=== PATIENT | male | born 1985 | race Caucasian/White ===

== ENCOUNTER 2019-12-28 23:32 | Emergency (ER) | payer OTHER, MEDICAID, SELFPAY ==
[2019-12-28 23:38] VITALS: BP 170/80; PULSE 80; RESP 20; TEMP 37.2; O2SAT 98
--- NOTE | 2019-12-28 23:51 | ED.EXTPRO ---
HPI - Extremity Problem General Chief complaint: Extremity Problem,Nontraumatic Stated complaint: spasms in legs/swelling Time Seen by Provider: 12/28/19 23:42 Source: patient Mode of arrival: Ambulatory Limitations: no limitations History of Present Illness HPI Narrative: 34-year-old male here for evaluation of swelling to his left lower extremity. Patient states that last evening he had a cramp in his left calf. He also states that he potentially had 1 in his right calf but was much worse in his left. No fevers. He states that today he has not had any of those symptoms but has noticed that his left lower extremities swelling. No pain today. Came into the emergency department for evaluation Related Data Previous Rx's Medication Instructions Recorded epinephrine [EpiPen 2-Yahir] 0.3 mg IM PRN PRN #1 pkg 01/30/16 baclofen 10 mg PO TID PRN #60 tab 10/20/17 nabumetone 750 mg PO QDAY #30 tab 10/20/17 Allergies Allergy/AdvReac Type Severity Reaction Status Date / Time Bee Venom Allergy Unknown UNKNOWN Uncoded 10/14/17 12:53 Sulfamethoxazole Allergy Unknown UNKNOWN Uncoded 10/14/17 12:53 Trimethoprim Allergy Unknown UNKNOWN Uncoded 10/14/17 12:53 Review of Systems Constitutional Constitutional: Denies fever(s) Musculoskeletal Comments: Swelling left lower extremity Integumentary/Breasts Skin/Breast: Denies lesions and Denies rash Neurologic Neurologic: Denies behavioral changes Psychiatric Psychiatric: Denies behavioral changes Hematologic/Lymphatic Hematologic/Lymphatic: Denies easy bleeding and Denies easy bruising Patient History Medical History Obesity Right hip pain (Inactive) Family History (Updated 01/30/16 @ 00:00 by Conversion Provider) Grandfather Age: 90 Cancer Heart disease High cholesterol Mother Age: 56 High cholesterol Mental health disorder Social History details: never household members: family pets and animals: No education level: college travel history: other leisure activities: sports, exercise, games and other other: midevil fisting seatbelt use: always helmet use: Yes water heater temp set < 120 deg: Yes working smoke detector in home: Yes fire extinguisher in home: Yes carbon monox detector in home: Yes firearms in home: No do you feel safe at home: Yes Smoking Status: Never smoker substance use type: marijuana during the past year weight has: decreased > 10 lbs well-balanced diet: daily or most days daily servings fruits/veg: other caffeine: No eating out: 1-3 times/week Type(s) of exercise: walking frequency: 1-2 times per week duration: 45-60 minutes/day Smoking Status: Never smoker alcohol intake frequency: a few times a month Substance Use Type: does not use Exam Initial Vital Signs Initial Vital Signs: Vital Signs Temperature 99 F 12/28/19 23:38 Pulse Rate 80 12/28/19 23:38 Respiratory Rate 20 12/28/19 23:38 Blood Pressure 170/80 H 12/28/19 23:38 Pulse Oximetry 98 12/28/19 23:38 Const General: cooperative, comfortable and well developed Resp Effort & Inspection: normal respiratory effort Skin Lesions: no lesions Rashes: no rashes Neuro Cognition: normal cognition Gait: normal gait Sensory Exam: no sensory deficits noted Extrem General: capillary refill normal Other: The left lower extremity does appear slightly more swollen than the right from his ankles to his knees. This is nonpitting edema. Otherwise lower extremity exam is unremarkable Psych Appearance: grossly normal and well kempt Scores Wells' Criteria for DVT Active Cancer (Treatment within 6 months): No Bedridden recently >3 days or major surgery within 4 weeks: No Calf Swelling >3cm compared to other leg: No Collateral (nonvericose) superficial veins present: No Entire leg swollen: No Localized tenderness along the deep vein system: No Pitting edema, confined to symtomatic leg: No Paralysis, paresis, or recent plaster immobilization of ext: No Previously documented DVT: No Alternative dx to DVT as likely or more likely: Yes Wells' criteria for DVT: -2 Course Orders Ordered: ED Orders 12/28/19 23:51 Basic Metabolic Panel Stat Complete Blood Count AUTO DIFF Stat D Dimer Stat Partial Thromboplastin Time Stat Prothrombin Time INR Stat Vital Signs Vital signs: Vital Signs - 8 hr 12/28/19 23:38 Temperature 99 F Pulse Rate 80 Respiratory Rate 20 Blood Pressure 170/80 H Pulse Oximetry 98 MDM - Extremity (Nontraumatic) Lab Data Attestation: I reviewed the patient's lab results. Result diagrams: 12/29/19 00:05 12/29/19 00:05 Labs: Lab Results 12/29/19 12/29/19 12/29/19 Range/Units 00:05 00:05 00:05 WBC 6.4 (4.5-11.0) X10^3/uL RBC 5.18 (4.5-5.9) X10^6/uL Hgb 15.0 (13.5-17.5) g/dL Hct 44.9 (41-53) % MCV 86.6 (80-100) fL MCH 28.9 (26-34) PG MCHC 33.4 (30-36) % RDW 14.5 (11.6-14.8) % Plt Count 243 (150-400) X10^3/uL Neut % (Auto) 59.7 (50-75) % Lymph % (Auto) 30.5 (25-40) % [place] % (Auto) 7.2 (3-14) % Eos % (Auto) 1.8 L (2-4) % Baso % (Auto) 0.8 (0-2) % Neut # (Auto) 3800 (5094-6521) /uL Lymph # (Auto) 1900 (5649-3440) /uL [place] # (Auto) 500 (0-900) /uL Eos # (Auto) 100 (0-450) /uL Baso # (Auto) 100 (0-100) /uL PT 11.6 (10.1-12.7) SECONDS INR 1.0 (0.9-1.3) APTT 36 (26.4-36.2) SECONDS D-Dimer < 200 (<230) ng/mL Sodium 141 (137-145) mmol/L Potassium 3.9 (3.4-5.1) mmol/L Chloride 107 (98-107) mmol/L Carbon Dioxide 26 (22-32) mmol/L BUN 18 (9-20) mg/dL Creatinine 0.76 (0.66-1.25) mg/dL Estimated GFR > 60.0 (>60) mL/min BUN/Creatinine Ratio 23.7 H (6-22) Glucose 101 H (70-100) mg/dL Calcium 9.6 (8.4-10.2) mg/dL MDM Narrative Medical decision making narrative: Patient is low risk per the will score. His D-dimer is negative. I feel we can hold on ultrasound. He does have a relatively unremarkable exam. I have low suspicion for DVT. Low suspicion for cellulitis. Low suspicion for compartment syndrome. Low suspicion for other orthopedic injury. Feel we can hold on any radiologic studies. Provided reassurance to the patient. He was given return precautions and follow-up instructions. He expressed understanding and agreement. Discharge Plan Departure Patient Disposition: Home Clinical Impression: Localized swelling of left lower leg Discharge Date/Time: 12/29/19 00:32 Instructions: DI for Peripheral Edema, Unilateral Activity Restrictions/Additional Instructions: Continue all of your medications as directed. I do recommend that you keep her left leg elevated for the next several days. Recommend that you do make contact with a primary provider. You can contact the health resource is coordinator here at the [facility] at [phone]. Return to the emergency department for any new or worsening symptoms Prescriptions: No Action epinephrine [EpiPen 2-Yahir] 0.3 MG/0.3 ML auto-injector 0.3 mg IM PRN PRNQty: 1 RF: 1 nabumetone 750 MG tablet 750 mg PO QDAY Qty: 30 RF: 2 baclofen 10 MG tablet 10 mg PO TID PRNQty: 60 RF: 1
--- NOTE | 2019-12-28 23:52 | PC.NURSE ---
PT states intermittent calf spasms and bi-lateral lower leg swelling for 2 days. Pt ambulated to room with steady gait, no pitting edema noted, +bi lateral pedal pulses.
[2019-12-29 00:18] LABS: Add Manual Diff / Slide Review NO; Basophils Absolute Auto 100 /uL (0-100); Basophils Percent Auto 0.8 % (0-2); Eosinophils Absolute Auto 100 /uL (0-450); Eosinophils Percent Auto 1.8 % (2-4); Hematocrit 44.9 % (41-53); Lymphocytes Absolute Auto 1900 /uL (1100-4500); Lymphocytes Percent Auto 30.5 % (25-40); Mean Corpuscular HGB Conc 33.4 % (30-36); Mean Corpuscular Hemoglobin 28.9 PG (26-34); Mean Corpuscular Volume 86.6 fL (80-100); Monocytes Absolute Auto 500 /uL (0-900); Monocytes Percent Auto 7.2 % (3-14); Neutrophils Absolute Auto 3800 /uL (1500-7000); Neutrophils Percent Auto 59.7 % (50-75); Platelet Count 243 X10^3/uL (150-400); Red Blood Cell Count 5.18 X10^6/uL (4.5-5.9); Red Cell Distribution Width 14.5 % (11.6-14.8); White Blood Cell Count 6.4 X10^3/uL (4.5-11.0)
[2019-12-29 00:20] LABS: Prothrombin Time 11.6 SECONDS (10.1-12.7)
[2019-12-29 00:23] LABS: PTT Partial Thromboplastin Tim 36 SECONDS (26.4-36.2)
[2019-12-29 00:24] LABS: BUN Creatinine Ratio 23.7 (6-22); Blood Urea Nitrogen 18 mg/dL (9-20); Calcium 9.6 mg/dL (8.4-10.2); Carbon Dioxide 26 mmol/L (22-32); Chloride 107 mmol/L (98-107); D Dimer < 200 ng/mL (<230); Estimated Glomerular Filt Rate > 60.0 mL/min (>60); Glucose 101 mg/dL (70-100); HEMOLYSIS < 15 (0-50); Potassium 3.9 mmol/L (3.4-5.1); Sodium 141 mmol/L (137-145)
== END 2019-12-29 00:32 | disposition home or self-care (01) ==
PROVIDERS: Emergency Provider Emergency Medicine
DX: R60.0 Localized edema (principal)
CPT/HCPCS: 36415; 80048; 85025; 85379; 85610; 85730; 99283

== ENCOUNTER 2021-02-28 13:51 | Emergency (ER) | payer OTHER, MEDICAID, SELFPAY ==
[2021-02-28] VITALS (7 sets, daily range): BP systolic 163–187; BP diastolic 89–105; PULSE 83–110; RESP 20–21; TEMP 36.9; O2SAT 93–97; BMI 58.4
--- NOTE | 2021-02-28 14:06 | ED_ITS ---
HPI - SOB/Dyspnea General Chief Complaint: Shortness of Breath/Dyspnea Stated Complaint: cpap machine recalled, SOB may be related Time Seen by Provider: 02/28/21 13:53 History of Present Illness HPI Narrative: Patient here for dyspnea for the past 8 months. Not every day has dyspnea. On average 3 times a week. He does walk daily. Denies any exertional chest pain or chest pain at rest. No changes in walking effort. Patient states his CPAP machine was recalled. Last use was yesterday. He is in works with [employer] and insurance to replace it. They are working with patient today. Denies denies any chest pain. Patient in no distress. Walked from waiting room to room 2. Resting comfortably in bed. Speaking full sentences. No distress. Patient states he has been dieting and exercising for weight loss without any exertional chest pain or dyspnea. Related Data Previous Rx's Medication Instructions Recorded epinephrine 0.3 mg/0.3 mL 0.3 mg IM PRN PRN #1 pkg 01/30/16 injection, auto-injector (EpiPen 2-Yahir) baclofen 10 mg tablet 10 mg PO TID PRN #60 tab 10/20/17 nabumetone 750 mg tablet 750 mg PO QDAY #30 tab 10/20/17 Allergies Allergy/AdvReac Type Severity Reaction Status Date / Time Bee Venom Allergy Unknown UNKNOWN Uncoded 10/14/17 12:53 Sulfamethoxazole Allergy Unknown UNKNOWN Uncoded 10/14/17 12:53 Trimethoprim Allergy Unknown UNKNOWN Uncoded 10/14/17 12:53 Review of Systems Review of Systems Narrative: GENERAL: Denies chills, fatigue, malaise, fever, sweats. HEENT: Denies sinus pain, ear pain, sore throat RESPIRATORY: Complain dyspnea, denies cough CARDIOVASCULAR: Denies chest pain, palpitations GASTROINTESTINAL: Denies nausea, vomiting, abdominal pain : Denies dysuria, frequency, hematuria MUSCULOSKELETAL: denies muscle or bony pain SKIN: Denies rash, skin lesions NEUROLOGIC: Denies weakness, numbness ROS Unobtainable: All systems reviewed & are unremarkable except as noted in HPI and below Patient History Medical History (Updated 02/28/21 @ 16:34 by Adair Welch MD) Obesity Right hip pain Family History Grandfather Age: 92 Cancer Heart disease High cholesterol Mother Age: 58 High cholesterol Mental health disorder Social History details: never household members: family pets and animals: No education level: college travel history: other leisure activities: sports, exercise, games and other other: midevil fisting seatbelt use: always helmet use: Yes water heater temp set < 120 deg: Yes working smoke detector in home: Yes fire extinguisher in home: Yes carbon monox detector in home: Yes firearms in home: No do you feel safe at home: Yes Smoking Status: Never smoker substance use type: marijuana during the past year weight has: decreased > 10 lbs well-balanced diet: daily or most days daily servings fruits/veg: other caffeine: No eating out: 1-3 times/week Type(s) of exercise: walking frequency: 1-2 times per week duration: 45-60 minutes/day Smoking Status: Never smoker alcohol intake frequency: a few times a month Substance Use Type: does not use Exam Narrative Exam Narrative: GENERAL: in no distress, not toxic not dyspneic HEAD: Normocephalic. EYES: Pupils equal round No scleral icterus. No injection no discharge ENT: Mucous membranes moist. NECK: Trachea midline. CARDIOVASCULAR: Regular rate and rhythm without murmurs RESPIRATORY: Clear to auscultation. Breath sounds equal bilaterally. No wheezes, rales, or rhonchi. Speaking full sentences. Walking in hallway from waiting room to room to without any distress. No labored breathing. GASTROINTESTINAL: Abdomen soft, non-tender EXTREMITIES: No gross deformities. Chronic bilateral ankle edema BACK: No flank tenderness. NEURO: AOx4. SKIN: Warm and dry PSYCH: Not anxious, is cooperative Initial Vital Signs Initial Vital Signs: Vital Signs Temperature 98.4 F 02/28/21 13:55 Pulse Rate 105 H 02/28/21 13:55 Respiratory Rate 20 02/28/21 13:55 Blood Pressure 187/105 H 02/28/21 13:55 Pulse Oximetry 97 02/28/21 13:55 Course Course Course Narrative: No new issues during course of stay no chest pain or dyspnea. Orders Ordered: ED Orders 02/28/21 14:06 XR chest 1V Stat 02/28/21 14:38 Complete Blood Count AUTO DIFF Stat Comprehensive Metabolic Panel Stat NT-proBNP (BNP-Adult 18+) Stat Troponin & CK Cardiac Panel Stat 02/28/21 14:41 EKG-12 Lead Stat Reevaluation(s) Reevaluation #1: Reviewed results with patient. Agrees with treatment plan and follow-up with primary care. He does have a family doctor he states. He states they are going to work on getting a new CPAP machine. There is a national back log on CPAP machines as there was a recall on so many brands and types of CPAP machines. Time: 16:32 Vital Signs Vital signs: Vital Signs - 8 hr 02/28/21 13:55 02/28/21 14:00 02/28/21 14:01 Temperature 98.4 F Pulse Rate 105 H 110 H 106 H Respiratory Rate 20 Blood Pressure 187/105 H 169/99 H Pulse Oximetry 97 96 96 MDM - SOB/Dyspnea Differential Diagnosis Differential diagnosis: Likely acute exacerbation of chronic obstructive airways disease, congestive heart failure, community acquired pneumonia, asthma with exa cerbation and other (Chronic dyspnea/chronic sleep apnea) Lab Data Result diagrams: 02/28/21 14:38 02/28/21 14:38 Labs: Lab Results 02/28/21 02/28/21 Range/Units 14:38 14:38 WBC 4.8 (4.5-11.0) X10^3/uL RBC 5.30 (4.5-5.9) X10^6/uL Hgb 14.8 (13.5-17.5) g/dL Hct 44.5 (41-53) % MCV 84.0 (80-100) fL MCH 28.0 (26-34) PG MCHC 33.3 (30-36) % RDW 14.8 (11.6-14.8) % Plt Count 229 (150-400) X10^3/uL Neut % (Auto) 63.7 (50-75) % Lymph % (Auto) 27.3 (25-40) % [place] % (Auto) 5.9 (3-14) % Eos % (Auto) 2.2 (2-4) % Baso % (Auto) 0.9 (0-2) % Neut # (Auto) 3000 (1009-8662) /uL Lymph # (Auto) 1300 (8437-7932) /uL [place] # (Auto) 300 (0-900) /uL Eos # (Auto) 100 (0-450) /uL Baso # (Auto) 0 (0-100) /uL Sodium 141 (137-145) mmol/L Potassium 3.0 L (3.4-5.1) mmol/L Chloride 102 (98-107) mmol/L Carbon Dioxide 31 (22-32) mmol/L BUN 16 (9-20) mg/dL Creatinine 0.77 (0.66-1.25) mg/dL Estimated GFR > 60.0 (>60) mL/min BUN/Creatinine Ratio 20.8 (6-22) Glucose 174 H (70-100) mg/dL Calcium 9.0 (8.4-10.2) mg/dL Total Bilirubin 0.8 (0.2-1.3) mg/dL AST 63 H (17-59) IU/L ALT 85 H (<50) IU/L Alkaline Phosphatase 79 (38-126) U/L Total Creatine Kinase 93 (55-170) U/L CK-MB (CK-2) TNP CK-MB (CK-2) Rel Index TNP Troponin I < 0.012 (0.01-0.034) ng/mL NT-Pro-B Natriuret Pep 20 (<125) pg/mL Total Protein 7.0 (6.3-8.2) g/dL Albumin 4.1 (3.5-5.0) g/dL Globulin 2.9 (1.7-4.1) g/dL Albumin/Globulin Ratio 1.4 (1.0-2.8) Imaging Data Chest x-ray: Radiologist's Impression: [address] [id number] ReportSigned Patient: Dc Cruz RMR#: [id number]: 1985Acct:[id number]/Sex: 35 / MDate of Service: 02/28/21Loc: EDAccession Number: [id number] Procedure: XR chest 1V Ordering Provider: Adair Welch MD PROCEDURE: XR CHEST 1V INDICATIONS: dyspnea TECHNIQUE: One view of the chest was acquired. COMPARISON: None. FINDINGS: Surgical changes and devices: None. Lungs and pleura: Lungs are clear. No pleural effusions or pneumothorax. Mediastinum: Mediastinal contours appear normal. Heart size is normal. Bones and chest wall: No suspicious bony lesions. Overlying soft tissues appear unremarkable. IMPRESSION: No acute cardiopulmonary disease process. Dictated by: Shalini Carey MD, PhD on 02/28/2021 at 14:32 Approved by: Shalini Carey MD, PhD on 02/28/2021 at 14:33 ECG Data Interpretation: Normal sinus rhythm rate [address] elevation/depression MDM Narrative Medical decision making narrative: Appropriate discharge home. Patient in no distress here. No ever had chest pain., heart rate and blood pressure noted on arrival. However on EKG heart rate did improve to 87. No repeat laboratory studies at this time. Ongoing for 8 months. No new changes. Patient was instructed to come here because his CPAP machine is in recall. We do not have any CPAP machines here as we are on back order. At discharge blood pressure 163/89 with pulse of 83. Low suspicion for pulmonary embolism at this time. Ongoing for 8 months. Dyspnea is intermittent only a few times a week. Discharge Plan Departure Patient Disposition: Home Clinical Impression: Chronic dyspnea Apnea, sleep Qualifiers: Sleep apnea type: unspecified type Qualified Code(s): G47.30 - Sleep apnea, unspecified Instructions: Sleep Apnea, DI for Shortness of Breath Activity Restrictions/Additional Instructions: Return immediately or if any questions or concerns or worsening symptoms or any chest pain. See family doctor to continue efforts to get a new CPAP machine. Prescriptions: No Action epinephrine [EpiPen 2-Yahir] 0.3 MG/0.3 ML auto-injector 0.3 mg IM PRN PRNQty: 1 RF: 1 nabumetone 750 MG tablet 750 mg PO QDAY Qty: 30 RF: 2 baclofen 10 MG tablet 10 mg PO TID PRNQty: 60 RF: 1 Referrals: Miscellaneous,DoctorMD [Primary Care Provider] -
--- NOTE | 2021-02-28 14:11 | PC.NURSE ---
pt having 8 months of SOB,pt here today because he is concerned that his cpap was recalled and it said there could be complications related to that which include SOB. Pt denies pain and has an occasional cough.
[2021-02-28 14:47] LABS: Add Manual Diff / Slide Review NO; Basophils Absolute Auto 0 /uL (0-100); Basophils Percent Auto 0.9 % (0-2); Eosinophils Absolute Auto 100 /uL (0-450); Eosinophils Percent Auto 2.2 % (2-4); Hematocrit 44.5 % (41-53); Hemoglobin 14.8 g/dL (13.5-17.5); Lymphocytes Absolute Auto 1300 /uL (1100-4500); Lymphocytes Percent Auto 27.3 % (25-40); Mean Corpuscular HGB Conc 33.3 % (30-36); Monocytes Absolute Auto 300 /uL (0-900); Monocytes Percent Auto 5.9 % (3-14); Neutrophils Absolute Auto 3000 /uL (1500-7000); Neutrophils Percent Auto 63.7 % (50-75); Platelet Count 229 X10^3/uL (150-400); Red Cell Distribution Width 14.8 % (11.6-14.8); White Blood Cell Count 4.8 X10^3/uL (4.5-11.0)
[2021-02-28 14:57] LABS: Alanine Aminotransferase 85 IU/L (<50); Albumin 4.1 g/dL (3.5-5.0); Albumin Globulin Ratio 1.4 (1.0-2.8); Alkaline Phosphatase 79 U/L (38-126); Aspartate Aminotransferase 63 IU/L (17-59); BUN Creatinine Ratio 20.8 (6-22); Bilirubin Total 0.8 mg/dL (0.2-1.3); Blood Urea Nitrogen 16 mg/dL (9-20); Carbon Dioxide 31 mmol/L (22-32); Chloride 102 mmol/L (98-107); Creatine Kinase 93 U/L (55-170); Estimated Glomerular Filt Rate > 60.0 mL/min (>60); Globulin 2.9 g/dL (1.7-4.1); Glucose 174 mg/dL (70-100); HEMOLYSIS < 15 (0-50); Sodium 141 mmol/L (137-145)
[2021-02-28 15:08] LABS: NT-proBNP (BNP-Adult 18+) 20 pg/mL (<125); Troponin I < 0.012 ng/mL (0.01-0.034)
== END 2021-02-28 16:52 | disposition home or self-care (01) ==
PROVIDERS: Emergency Provider Emergency Medicine
DX: R06.00 Dyspnea, unspecified (principal); G47.30 Sleep apnea, unspecified
CPT/HCPCS: 36415; 71045; 80053; 82550; 83880; 84484; 85025; 93005; 93010; 99284